=== PATIENT | female | born 1955 | race Caucasian/White ===

== ENCOUNTER 2019-03-23 10:34 | Emergency (ER) | payer OTHER, SELFPAY ==
[2019-03-23 10:37] VITALS: BP 155/76; PULSE 61; RESP 16; TEMP 36.5; O2SAT 96
--- NOTE | 2019-03-23 11:05 | DI.COMBO_ITS ---
SYMPTOM/DIAGNOSIS: EPIGASTRIC ABD PAIN ABDOMEN AND PELVIC CT: CT scan of the abdomen and pelvis was performed following the uneventful administration of intravenous contrast material. There are no priors for comparison. The lung bases are clear. The liver is normal in size. No suspicious hepatic mass is seen. The portal, superior mesenteric and splenic veins are patent. The gallbladder is negative. There is no biliary ductal dilatation. The pancreas, spleen and adrenal glands are unremarkable. The kidneys show normal and symmetric enhancement. No evidence of a solid renal mass or obstruction. The urinary bladder is unremarkable as visualized. The reproductive organs are unremarkable except for a 2 cm. hyperdense lesion seen in the uterus. This may represent uterine fibroid. Non emergent pelvic ultrasound may be considered. The bowel shows no evidence of obstruction or inflammation. There is a moderate amount of retained stool throughout the colon. There is a normal appendix present. There is atherosclerosis of the abdominal aorta but no aneurysmal dilatation. No significant abdominal or pelvic adenopathy, ascites or pneumoperitoneum is present. Multi level degenerative changes are seen throughout the spine. The findings do result in multi level central spinal canal stenosis which is moderate to severe at L 1-2 through L 4-5. Multi level neural foraminal stenosis is also noted. The patient has bilateral total hip replacements which do obscure the pelvic anatomy. There is soft tissue incompletely visualized in the inferior portion of the left breast. This may represent normal breast tissue. A mass cannot be excluded. IMPRESSION: 1. No evidence of an acute abdomen. 2. 2 cm. hyperdense lesion seen in the right uterus. This may represent a fibroid. Non emergent pelvic ultrasound should be considered for further evaluation. 3 2.5 cm. soft tissue mass-like region incompletely visualized in the inferior portion of the left breast. This may represent normal breast tissue. Mass cannot be excluded. Please correlate with the patient's mammograms and physical exam. Follow up mammogram may be considered for further evaluation. 4. Multi level central spinal canal and neural foraminal stenosis in the lumbar spine. PA AND LATERAL CHEST: No priors. Heart size and pulmonary vasculature are within normal limits. The lungs are clear. No effusions or pneumothoraces are identified. Degenerative changes are seen in the spine. The lungs appear somewhat hyperinflated. This may be due to deep inspiration, reactive airway disease or underlying COPD. IMPRESSION: 1. No acute pulmonary process.
--- NOTE | 2019-03-23 11:08 | ED.GENADUL_ITS ---
Discharge Plan Disposition Patient Disposition: HOME Condition: Improving Discharge Details Chief Complaint: Abd Prob Clinical Impression: Epigastric abdominal pain, Nausea Primary Care Provider: Sejal Joseph ED Provider: Jacque Carter Home Meds and New Rx's Prescriptions: Continued levothyroxine 75 mcg Tablet 75 mcg PO DAILY RF: 0 Discharge Instructions Instructions: Acute Nausea and Vomiting (ED), Abdominal Pain (ED) Additional Instructions: Take your Prilosec that you have at home as directed. Call your primary care doctor Monday to schedule a follow-up appointment for reevaluation and to discuss the uterine fibroid and mass seen in your left lower breast on the CAT scan of your abdomen today. Return immediately to the emergency department with any worsening or new concerning symptoms. Discharge Data Discharge Physician: Jacque Carter Medical Decision Making 64-year-old female with history of GERD, hypothyroidism and hyperlipidemia with history of exploratory laparotomy with diagnosis of ovarian cysts who presents with epigastric abdominal pain and nausea since 8 AM this morning. EKG done on arrival due to patient's age and complaint of epigastric abdominal pain and unremarkable. Blood pressure mildly hypertensive, otherwise vitals within normal limits. Patient is tender to palpation in the epigastrium and left upper quadrant. Differential diagnosis includes GERD, gastritis, PUD, cholecystitis, pancreatitis, small bowel obstruction, ACS. Will place an IV, bolus IV fluids, labs, CT abdomen and pelvis, Zofran, Pepcid and GI cocktail and reassess. 1205 --patient states her pain and nausea is improved. Labs reviewed and unremarkable. Normal white blood cell count, electrolytes, lipase, troponin. 1305 --imaging reviewed and no acute significant findings. Chest x-ray negative. CT abdomen and pelvis notes questionable uterine fibroid as well as a 2.5 cm mass in the inferior portion of the left breast otherwise no acute findings. Repeat EKG done and no acute findings. Patient states she feels much better and is requesting to go home. She was informed of the likely incidental CT findings and then to follow-up with her primary care doctor regarding these. Patient states she has Prilosec at home. She is instructed to take this as directed and call her primary care doctor on Monday to schedule a follow-up appointment for reevaluation and to discuss any further management of the incidental CT findings. She is instructed to return here if worse. Medical Records Medical records reviewed: Yes I reviewed the patient's medical records. Imaging Data Radiologic Study: Radiologist's impression: CT Abdomen and Pelvis With Contrast EXAM DATE/TIME: 03/23/2019 11:08 AM FINDINGS: ABDOMEN: Liver: Normal. No mass. Gallbladder and bile ducts: Normal. No calcified stones. No ductal dilation. Pancreas: Normal. No ductal dilation. Spleen: Normal. No splenomegaly. Adrenals: Normal. No mass. 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 Stomach and bowel: Moderate retained feces in the transverse colon and right colon. Appendix: Normal appendix. PELVIS: Bladder: Unremarkable as visualized. Reproductive: Enhancing 1.8 cm right uterine lesion suggesting possible right intramural uterine fibroid. ABDOMEN and PELVIS: Intraperitoneal space: Normal. No free air. No significant fluid collection. Bones/joints: Bilateral total hip replacement with metallic artifact partially obscuring the pelvic anatomy. There is severe thoracolumbar spondylosis. Moderate to severe multilevel degenerative changes including degenerative disc disease, spondylosis and facet degenerative changes. Multilevel central spinal stenosis. Soft tissues: Possible incompletely visualized 2.5 cm mass in the inferior portion of the left breast. Axial series 4, image 1. Followup according to the staff radiologist's final report. Vasculature: Calcification of the abdominal aorta and/or iliac arteries consistent with atherosclerotic vessel disease. Lymph nodes: Normal. No enlarged lymph nodes. IMPRESSION: 1. Bilateral total hip replacement with metallic artifact partially obscuring the pelvic anatomy. 2. Possible incompletely visualized 2.5 cm mass in the inferior portion of the left breast. Axial series 4, image 1. Followup according to the staff radiologist's final report. 3. Enhancing 1.8 cm right uterine lesion suggesting possible right intramural uterine fibroid. 4. Multilevel central spinal stenosis. Radiologic Study #2: Radiologist's impression: XR Chest, 2 Views EXAM DATE/TIME: 03/23/2019 11:08 AM FINDINGS: Lungs: Moderately hyperaerated lungs consistent with deep inspiratory effort vs significant reactive airway disease vs moderate COPD . Pleural space: Unremarkable. No pleural effusion. No pneumothorax. Heart/Mediastinum: Unremarkable. No cardiomegaly. Bones/joints: Mild dextroscoliosis. Mild thoracic spondylosis. IMPRESSION: Moderately hyperaerated lungs consistent with deep inspiratory effort vs significant reactive airway disease vs moderate COPD . Lab Data Lab results reviewed: Yes I reviewed the patient's lab results. Laboratory Tests Range/Units 04/27/19 04/27/19 04/27/19 11:19 11:19 11:19 WBC (4.4-10.8) k/cumm 4.88 RBC (4.00-5.20) m/cumm 4.64 Hgb (12.0-15.5) g/dL 14.5 Hct (36.0-46.0) % 42.1 MCV (80-95) fL 90.7 MCH (27.0-33.0) pg 31.3 MCHC (32.0-36.0) g/dL 34.4 RDW (11.7-14.6) % 12.5 Plt Count (130-400) x1000/uL 209 MPV (8.0-11.0) fL 10.6 Immature Gran % 0.0 Neutrophils % 72.8 Lymphocytes % 18.0 Monocytes % 7.4 Eosinophils % 0.8 Basophils % 1.0 Absolute Neutrophils (1.2-6.7) k/cumm 3.55 Absolute Lymphocytes (1.2-3.4) k/cumm 0.88 L Absolute Monocytes (0.11-0.7) k/cumm 0.36 Absolute Eosinophils (0.0-0.7) k/cumm 0.04 Absolute Basophils (0.0-0.2) k/cumm 0.05 Sodium (136-145) mmol/L 141 Potassium (3.5-5.1) mmol/L 3.7 Chloride (98-107) mmol/L 104 Carbon Dioxide (21.0-32.0) mmol/L 27.9 Anion Gap (3-11) mmol/L 9.1 BUN (7-18) mg/dL 17 Creatinine (0.55-1.02) mg/dL 0.76 Estimated GFR/1.73 m2 (mL/min/1.73m2) >= 60.00 Glucose (70-100) mg/dL 95 Calcium (8.5-10.1) mg/dL 8.5 Magnesium (1.8-2.4) mg/dL 2.0 Total Bilirubin (0.2-1.0) mg/dL 0.5 AST (15-37) U/L 21 ALT (12-78) U/L 26 Alkaline Phosphatase (46-116) U/L 95 Troponin I (0.00-0.06) ng/mL < 0.02 Total Protein (6.4-8.2) g/dL 7.0 Albumin (3.4-5.0) g/dL 3.8 Lipase (73-393) U/L 135 Urine Color (Yellow) Urine Clarity Urine pH (5-8) Ur Specific [place] (1.005-1.025) Urine Protein (Negative) mg/dL Urine Ketones (Negative) mg/dL Urine Blood (Negative) Urine Nitrite (Negative) Urine Bilirubin (Negative) Urine Urobilinogen (Up TO 0.2) EU/dL Ur Leukocyte Esterase (Negative) Urine Glucose (Negative) mg/dL Range/Units 03/23/19 12:00 WBC (4.4-10.8) k/cumm RBC (4.00-5.20) m/cumm Hgb (12.0-15.5) g/dL Hct (36.0-46.0) % MCV (80-95) fL MCH (27.0-33.0) pg MCHC (32.0-36.0) g/dL RDW (11.7-14.6) % Plt Count (130-400) x1000/uL MPV (8.0-11.0) fL Immature Gran % Neutrophils % Lymphocytes % Monocytes % Eosinophils % Basophils % Absolute Neutrophils (1.2-6.7) k/cumm Absolute Lymphocytes (1.2-3.4) k/cumm Absolute Monocytes (0.11-0.7) k/cumm Absolute Eosinophils (0.0-0.7) k/cumm Absolute Basophils (0.0-0.2) k/cumm Sodium (136-145) mmol/L Potassium (3.5-5.1) mmol/L Chloride (98-107) mmol/L Carbon Dioxide (21.0-32.0) mmol/L Anion Gap (3-11) mmol/L BUN (7-18) mg/dL Creatinine (0.55-1.02) mg/dL Estimated GFR/1.73 m2 (mL/min/1.73m2) Glucose (70-100) mg/dL Calcium (8.5-10.1) mg/dL Magnesium (1.8-2.4) mg/dL Total Bilirubin (0.2-1.0) mg/dL AST (15-37) U/L ALT (12-78) U/L Alkaline Phosphatase (46-116) U/L Troponin I (0.00-0.06) ng/mL Total Protein (6.4-8.2) g/dL Albumin (3.4-5.0) g/dL Lipase (73-393) U/L Urine Color (Yellow) Yellow Urine Clarity Clear Urine pH (5-8) 7.5 Ur Specific [place] (1.005-1.025) 1.020 Urine Protein (Negative) mg/dL Negative Urine Ketones (Negative) mg/dL Negative Urine Blood (Negative) Negative Urine Nitrite (Negative) Negative Urine Bilirubin (Negative) Negative Urine Urobilinogen (Up TO 0.2) EU/dL 0.2 Ur Leukocyte Esterase (Negative) Negative Urine Glucose (Negative) mg/dL Negative ECG Data Attestation: I personally reviewed and interpreted this ECG (s) as follows: Interpretation: 1044 -- Rate of 57, sinus, no acute ST elevation or depression. QTc 405. QRS 92. 1323 --rate of 53, sinus, no acute ST elevation or depression. QTc 396. QRS 92. HPI General Mode of arrival: ambulatory . Date/Time Provider Initiated Documentation: 03/23/19 10:52 . Limitations to Documentation: no limitations . Information obtained by: patient . HPI Narrative: Patient is a 64-year-old female with a history of GERD, hypothyroidism and hyperlipidemia with a history of exploratory laparotomy due to ovarian cysts who presents with epigastric abdominal pain since 8 AM this morning. Patient describes the pain is a constant dull and pressure-like pain in the epigastric and left upper quadrant with intermittent episodes of intense pain that lasts a few minutes and then subside. States her pain is currently 5/10 and 8/10 at its worst. She denies any radiation of pain, aggravating or alleviating factors. She has not taken anything for pain. She admits to nausea but denies vomiting or diarrhea. She states she drank 2 small glasses of wine last night. She states she drinks alcohol approximately once every few weeks. Related Data Home Medications Medication Instructions Recorded Confirmed levothyroxine 75 mcg PO DAILY 03/23/19 03/23/19 Allergies Allergy/AdvReac Type Severity Reaction Status Date / Time escitalopram [From Lexapro] AdvReac Unverified 03/23/19 11:31 General Stated Complaint: Abd Prob AMOR: 3 Review of Systems Review of Systems All systems reviewed & are unremarkable except as noted in HPI and below Constitutional Reports as per HPI, Denies chills and Denies fever(s) Eyes Denies blurry vision ENT Denies dizziness, Denies sore throat and Denies throat swelling Cardiovascular Denies chest pain and Denies dyspnea Respiratory Denies cough and Denies dyspnea Gastrointestinal Reports abdominal pain, Denies diarrhea, Reports nausea and Denies vomiting Genitourinary Denies hematuria and Denies dysuria Musculoskeletal Denies back pain and Denies numbness Integumentary/Breasts Denies lesions and Denies rash Neurologic Denies dizziness, Denies focal weakness and Denies numbness Allergic/Immunologic Denies throat swelling PFSH Medical History Hx of hyperlipidemia (Acute) GERD (gastroesophageal reflux disease) (Chronic) Hypothyroidism (Chronic) Surgical History H/O exploratory laparotomy (Acute) Hx of bilateral hip replacements (Acute) Social History Smoking/Tobacco Use Status: Never Alcohol Intake: current Alcohol Intake frequency: holidays/special occasions only Alcohol type: wine Drug use: Never Substance use type: does not use Do you feel safe at home: Yes Do you feel safe in your relationship?: Yes Exam Const General: cooperative, healthy appearing and no acute distress [facility] Head: normal to inspection Face and sinus: normal facial exam Eyes General: appearance normal, both eyes and all related structures EOM: EOM intact bilaterally Neck Neck: normal visual inspection and No submandibular swelling Lymphatic: no lymphadenopathy noted Chest Chest: normal inspection of the chest and no tenderness Resp Effort & Inspection: normal respiratory effort and able to speak in complete sentences Auscultation: clear to auscultation bilaterally Cardio Rate: regular rate Rhythm: regular rhythm GI Inspection: normal to inspection Palpation: soft, not firm, not rigid and tender in the epigastrum and in the LUQ Auscultation: normal bowel sounds Skin General skin exam: no rashes or lesions noted Neuro General: alert, awake and oriented x3 Cognition: normal cognition Speech: speech normal Motor: muscle tone normal throughout Sensory Exam: no sensory deficits noted Extrem General: normal to inspection, full ROM and no edema Psych Appearance: grossly normal Mental Status: mental status grossly normal Speech and Movement: speech and movement normal Affect: normal affect Course Vital Signs Temperature 97.7 F 03/23/19 10:37 Pulse 61 03/23/19 10:37 Respiratory Rate 16 03/23/19 10:37 Blood Pressure 155/76 H 03/23/19 10:37 Pulse Oximetry 96 03/23/19 10:37 Temperature 97.7 F 03/23/19 10:37 Temperature Source Temporal Artery Scan 03/23/19 10:37 Pulse 61 03/23/19 10:37 Respiratory Rate 16 03/23/19 10:37 Blood Pressure 155/76 H 03/23/19 10:37 Blood Pressure Position Sitting 03/23/19 10:37 Pulse Oximetry 96 03/23/19 10:37 Oxygen Delivery Method Room Air 03/23/19 10:37 Oxygen Flow Rate 0 03/23/19 10:37 Pain Level 4 03/23/19 10:37
[2019-03-23] MEDS: Normal Saline 1,000 ML 1000 ML IV (11:27)
[2019-03-23] MEDS: FAMOTIDINE 20 MG/50 ML BAG 200 MG IVPB (11:28)
[2019-03-23] MEDS: Ondansetron 4 MG/2 ML VIAL IVP (11:28)
[2019-03-23 11:34] LABS: Absolute Basophil Count 0.05 k/cumm (0.0-0.2); Absolute Eosinophil Count 0.04 k/cumm (0.0-0.7); Absolute Lymphocyte Count 0.88 k/cumm (1.2-3.4); Absolute Monocyte Count 0.36 k/cumm (0.11-0.7); Absolute Neutrophil Count 3.55 k/cumm (1.2-6.7); Eosinophils % 0.8; HCT 42.1 % (36.0-46.0); HGB 14.5 g/dL (12.0-15.5); Mean Corp. HGB Concentration 34.4 g/dL (32.0-36.0); Mean Corpuscular Hemoglobin 31.3 pg (27.0-33.0); Mean Corpuscular Volume 90.7 fL (80-95); Mean Platelet Volume 10.6 fL (8.0-11.0); Monocytes % 7.4; Neutrophils % 72.8; Platelet Count 209 x1000/uL (130-400); RBC 4.64 m/cumm (4.00-5.20); RBC Distribution Width 12.5 % (11.7-14.6); White Blood Cell Count 4.88 k/cumm (4.4-10.8)
[2019-03-23 11:45] LABS: Lipase 135 U/L (73-393)
[2019-03-23 11:50] LABS: Troponin I < 0.02 ng/mL (0.00-0.06)
[2019-03-23 11:57] LABS: ALT 26 U/L (12-78); AST 21 U/L (15-37); Albumin 3.8 g/dL (3.4-5.0); Alkaline Phosphatase 95 U/L (46-116); Anion Gap 9.1 mmol/L (3-11); BUN 17 mg/dL (7-18); Bilirubin, Total 0.5 mg/dL (0.2-1.0); CO2 27.9 mmol/L (21.0-32.0); CREATININE 0.76 mg/dL (0.55-1.02); Calcium 8.5 mg/dL (8.5-10.1); Chloride 104 mmol/L (98-107); Glucose 95 mg/dL (70-100); Potassium 3.7 mmol/L (3.5-5.1); Sodium 141 mmol/L (136-145)
[2019-03-23 12:10] LABS: Bilirubin Negative (Negative); Blood Negative (Negative); Clarity Clear; Glucose Negative (Negative); Ketones Negative (Negative); Leukocyte Esterase Negative (Negative); Nitrite Negative (Negative); Urobilinogen 0.2 EU/dL (Up TO 0.2); pH 7.5 (5-8)
[2019-03-23] MEDS: Omnipaque 350 MG/ML 100 ML BTL IJ (12:30)
--- NOTE | 2019-03-23 13:05 | DI.VRAD_ITS ---
EXAM: CT Abdomen and Pelvis With Contrast EXAM DATE/TIME: 03/23/2019 11:08 AM CLINICAL HISTORY: 64 years old, female; Other: Epigastric pain, luq pain TECHNIQUE: Imaging protocol: Axial computed tomography images of the abdomen and pelvis with intravenous contrast. Coronal and sagittal reformatted images were created and reviewed. COMPARISON: No relevant prior studies available. FINDINGS: ABDOMEN: Liver: Normal. No mass. Gallbladder and bile ducts: Normal. No calcified stones. No ductal dilation. Pancreas: Normal. No ductal dilation. Spleen: Normal. No splenomegaly. Adrenals: Normal. No mass. 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 Stomach and bowel: Moderate retained feces in the transverse colon and right colon. Appendix: Normal appendix. PELVIS: Bladder: Unremarkable as visualized. Reproductive: Enhancing 1.8 cm right uterine lesion suggesting possible right intramural uterine fibroid. ABDOMEN and PELVIS: Intraperitoneal space: Normal. No free air. No significant fluid collection. Bones/joints: Bilateral total hip replacement with metallic artifact partially obscuring the pelvic anatomy. There is severe thoracolumbar spondylosis. Moderate to severe multilevel degenerative changes including degenerative disc disease, spondylosis and facet degenerative changes. Multilevel central spinal stenosis. Soft tissues: Possible incompletely visualized 2.5 cm mass in the inferior portion of the left breast. Axial series 4, image 1. Followup according to the staff radiologist's final report. Vasculature: Calcification of the abdominal aorta and/or iliac arteries consistent with atherosclerotic vessel disease. Lymph nodes: Normal. No enlarged lymph nodes. IMPRESSION: 1. Bilateral total hip replacement with metallic artifact partially obscuring the pelvic anatomy. 2. Possible incompletely visualized 2.5 cm mass in the inferior portion of the left breast. Axial series 4, image 1. Followup according to the staff radiologist's final report. 3. Enhancing 1.8 cm right uterine lesion suggesting possible right intramural uterine fibroid. 4. Multilevel central spinal stenosis. Dictated and Authenticated by: Gareth Madden MD. Ordering:MOHIT Santillan MD
--- NOTE | 2019-03-23 13:07 | DI.VRAD_ITS ---
EXAM: XR Chest, 2 Views EXAM DATE/TIME: 03/23/2019 11:08 AM CLINICAL HISTORY: 64 years old, female; Pain; Other: Epigastric TECHNIQUE: Imaging protocol: XR of the chest, 2 views. COMPARISON: No relevant prior studies available. FINDINGS: Lungs: Moderately hyperaerated lungs consistent with deep inspiratory effort vs significant reactive airway disease vs moderate COPD . Pleural space: Unremarkable. No pleural effusion. No pneumothorax. Heart/Mediastinum: Unremarkable. No cardiomegaly. Bones/joints: Mild dextroscoliosis. Mild thoracic spondylosis. IMPRESSION: Moderately hyperaerated lungs consistent with deep inspiratory effort vs significant reactive airway disease vs moderate COPD . Dictated and Authenticated by: Gareth Madden MD. Ordering:MOHIT Santillan MD
[2019-03-23 13:35] VITALS: BP 116/44; PULSE 54; RESP 16; TEMP 37.2; O2SAT 97
== END 2019-03-23 13:45 | disposition home or self-care (01) ==
PROVIDERS: Emergency Provider Physician Assistant; PCP Family Medicine
DX: R10.13 Epigastric pain (principal); R11.0 Nausea; N63.20 Unspecified lump in the left breast, unspecified quadrant; D25.9 Leiomyoma of uterus, unspecified
CPT/HCPCS: 80053; 83690; 93005; 96361; 96374; 99285; 71046; 74177; 81003; 83735; 84484; 85025; 93010; J2405; J3490

== ENCOUNTER 2020-07-28 14:10 | Outpatient (REF) | payer SELFPAY ==
[2020-07-30 15:58] LABS: Patient Race White; SARS-CoV-2 RNA Undetected (Undetected); SARS-CoV-2 Specimen Source Nasal
== END 2020-07-28 14:30 ==
LOC: NCHCN 14:10
PROVIDERS: PCP Family Medicine; Visit Provider Family Medicine
DX: Z20.828 Contact with and (suspected) exposure to other viral communicable diseases (principal)
CPT/HCPCS: U0003

== ENCOUNTER 2020-10-02 14:18 | Outpatient (CLI) | payer MEDICARE, SELFPAY ==
--- NOTE | 2020-10-02 | DI.RAD_ITS ---
EXAM: XR KNEE RT 4V AP,LAT,RICHARD,PAT CLINICAL HISTORY: RT KNEE PAIN ACUTE, M25.561 TECHNIQUE: COMPARISON: No exams were available for comparison FINDINGS: Four views were obtained. There is a probable knee joint effusion. There are degenerative changes o f all 3 joints of the knee with narrowing of the cartilaginous joint spaces and moderate osteophyte f ormations at the joint margins. There is no evidence of acute fracture or dislocation. IMPRESSION: RADIATION DOSE DELIVERED: Total DLP
== END 2020-10-02 14:38 ==
PROVIDERS: PCP Family Medicine; Visit Provider Family Medicine
DX: M25.561 Pain in right knee (principal)
CPT/HCPCS: 73564

== ENCOUNTER 2020-10-30 22:18 | Outpatient (REF) | payer MEDICARE, SELFPAY ==
[2020-11-03 10:09] LABS: COVID-19 RT-PCR Result NEGATIVE (Negative)
== END 2020-10-30 22:38 ==
LOC: NCHCN 22:18
PROVIDERS: PCP Family Medicine; Visit Provider Nurse Practitioner Family
DX: Z11.59 Encounter for screening for other viral diseases (principal)
CPT/HCPCS: U0003

== ENCOUNTER 2020-12-23 05:45 | Emergency (ER) | payer MEDICARE, SELFPAY ==
--- NOTE | 2020-12-23 05:45 | DI.RAD_ITS ---
EXAM: XR PORTABLE CHEST AP CLINICAL HISTORY: fever TECHNIQUE: 2D digital imaging was performed. COMPARISON: CR XR CHEST 2V PA LATERAL from 03/23/2019 FINDINGS: LUNGS: Clear. No pleural abnormality seen. HEART: Normal. MEDIASTINUM: Normal. BONES: Prominent osteophytes in the thoracic spine. IMPRESSION: No acute pulmonary findings. DATA REPOSITORY: RADIATION DOSE DELIVERED:
[2020-12-23 05:51] VITALS: BP 173/91; PULSE 84; RESP 18; TEMP 37.2; O2SAT 97
--- NOTE | 2020-12-23 05:57 | W.ED.GENAD ---
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 This is likely a vaccine reaction and should only last a few days at most continue tylenol as needed for body aches and you can also try using ibuprofen if you have no allergies if not better within 5 days follow up with your primary care provider if you feel more ill, have worsening weakness, difficulty breathing or severe pain return to the emergency department Medical Decision Making 65 yo female with hx of hypothryoidism who is on her 2nd to last day of bactrim for a uti dx'd at urgent care, who received her 2nd maderna covid vaccine yesterday comes in with body aches, fever to 101 and body aches this morning. She has a mild headache, no cough, rashes, vomit, back pain. She denies smoking, rarely drinks and no drug use. She still has some suprapubic discomfort, no cva tenderness, no guarding or tenderness on abdominal exam. ARrives hd stable speaking in full sentences, no menignismus, clear lungs and no murmurs and no rashes or stigmata of endocarditis. Suspect her symptoms are due to the vaccine she received yesterday as cdc website lists common side effects of fevers, chills, tiredness and headaches but will evaluate for possible continued uti with ua, obtain cbc and lactate. 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 She remains stable, is going to try giving a urine for urinalysis. UA only shows few bacteria otherwise unremarkable so do not feel additional abx indicated. She remains stable and given reassuring exam and workup feel this is most likely vaccine side effects. She is comfortable with d/c and f/u with pcp if symptoms continue and return precautions given Differential Diagnosis Differential Diagnosis: pyelo, uti, vaccine side effects Imaging Data Radiologic Study: Attestation: I personally reviewed and interpreted this imaging study as follows: Imaging: X-Ray Radiologist's impression: PROCEDURE INFORMATION: Exam: XR Chest, 1 View Exam date and time: 12/23/2020 5:57 AM Age: 65 years old Clinical indication: Patient HX: Fever, chills TECHNIQUE: Imaging protocol: XR of the chest Views: 1 view. COMPARISON: CR XR CHEST 2V PA LATERAL 03/23/2019 12:34 PM FINDINGS: Lungs: Unremarkable. No consolidation. Pleural spaces: Unremarkable. No pleural effusion. No pneumothorax. Heart/Mediastinum: Unremarkable. No cardiomegaly. Bones/joints: Unremarkable. IMPRESSION: No acute findings. Lab Data Lab results reviewed: Yes I reviewed the patient's lab results. HPI General Mode of arrival: ambulatory. Date/Time Provider Initiated Documentation: 12/23/20 05:46. Limitations to Documentation: no limitations. Information obtained by: patient. History of Present Illness 65 year old F presents to the emergency department with the chief complaint of body aches and fever, described as moderate, Patient started experiencing this day(s) (1) and it has been constant. No relieving factors improve symptom(s), No exacerbating factors reported . Patient did receive the following treatments prior to arrival, other (tylenol) Related Data Home Medications Medication Instructions Recorded Confirmed levothyroxine 75 mcg PO DAILY 03/23/19 03/23/19 Allergies Allergy/AdvReac Type Severity Reaction Status Date / Time escitalopram [From Lexapro] AdvReac Unverified 03/23/19 11:31 General Stated Complaint: Fever AMOR: 4 Review of Systems All systems reviewed & are unremarkable except as noted in HPI and below Cardiovascular Cardiovascular: Denies chest pain and Denies dyspnea Respiratory Respiratory: Denies cough and Denies dyspnea Gastrointestinal Gastrointestinal: Denies nausea and Denies vomiting Integumentary/Breasts Skin/Breast: Denies rash COUNT INCLUDES THE [facility] Medical History (Updated 12/23/20 @ 07:16 by Gareth Parmar MD) GERD (gastroesophageal reflux disease) Hx of hyperlipidemia Hypothyroidism Surgical History H/O exploratory laparotomy due to ovarian cysts, otherwise negative Hx of bilateral hip replacements Social History Smoking/Tobacco Use Status: Never Smoking risk assessment performed?: Yes Alcohol Intake: former Drug use: Never Substance use type: does not use Do you feel safe at home: Yes Do you feel safe in your relationship?: Yes Exam Const General: no acute distress Orientation: alert HENMT Head: normal to inspection Ears: external ears normal General nose exam: external nose normal Mouth: moist mucous membranes Eyes General: appearance normal, both eyes and all related structures Neck Neck: normal visual inspection Resp Effort & Inspection: normal respiratory effort and able to speak in complete sentences Cardio Rate: regular rate General: No CVA tenderness Skin General skin exam: no rashes or lesions noted Neuro General: patient alert and patient oriented x3 Extrem General: normal to inspection Psych Mental Status: mental status grossly normal Course Vital Signs Vital signs: Vital Signs Temperature 37.2 C 12/23/20 05:51 Pulse 84 12/23/20 05:51 Respiratory Rate 18 12/23/20 05:51 Blood Pressure 173/91 H 12/23/20 05:51 Pulse Oximetry 97 12/23/20 05:51 Temperature 37.2 C 12/23/20 05:51 Temperature Source Temporal Artery Scan 12/23/20 05:51 Pulse 84 12/23/20 05:51 Respiratory Rate 18 12/23/20 05:51 Respiratory Effort Non-Labored 12/23/20 05:55 Blood Pressure 173/91 H 12/23/20 05:51 Blood Pressure Position Sitting 12/23/20 05:51 Pulse Oximetry 97 12/23/20 05:51 Oxygen Delivery Method Room Air 12/23/20 05:51 Oxygen Flow Rate 0 12/23/20 05:51
[2020-12-23] MEDS: Normal Saline 1,000 ML 1000 ML IV (06:00)
[2020-12-23 06:22] LABS: Abs Immature Grans 0.01 10^3/uL (0.0-0.06); Absolute Basophil Count 0.05 10^3/uL (0.0-0.2); Absolute Eosinophil Count 0.04 10^3/uL (0.0-0.7); Absolute Lymphocyte Count 0.46 10^3/uL (1.2-3.4); Absolute Monocyte Count 0.35 10^3/uL (0.1-0.8); Absolute Neutrophil Count 6.15 10^3/uL (1.2-6.7); Basophils % 0.7; Eosinophils % 0.6; HCT 39.9 % (36.0-46.0); HGB 13.6 g/dL (11.2-15.7); Immature Grans % 0.1; Lymphocytes % 6.5; MCH 30.9 pg (27.0-33.0); MCHC 34.1 % (32.0-36.0); MCV 90.7 fL (80-95); MPV 10.3 fL (8.0-11.0); Neutrophils % 87.1; Nucleated RBC 0 %; Platelet Count 235 10^3/uL (130-400); RDW 11.9 % (11.7-14.6); RDW-SD 39.8 fL; WBC 7.06 10^3/uL (4.4-10.8)
[2020-12-23 06:33] LABS: Magnesium 1.8 mg/dL (1.8-2.4)
[2020-12-23 06:38] LABS: ALT 20 U/L (14-59); AST 16 U/L (15-37); Albumin 3.8 g/dL (3.4-5.0); Alkaline Phosphatase 81 U/L (46-116); Anion Gap 13.1 mmol/L (3-11); BUN 11 mg/dL (7-18); Bilirubin, Total 0.5 mg/dL (0.2-1.0); CO2 23.9 mmol/L (21.0-32.0); CREATININE 1.02 mg/dL (0.55-1.02); Calcium 8.7 mg/dL (8.5-10.1); Chloride 100 mmol/L (98-107); Estimated GFR 54.39 (mL/min/1.73m2); Glucose 123 mg/dL (74-106); Potassium 3.4 mmol/L (3.5-5.1); Sodium 137 mmol/L (136-145); Total Protein 7.4 g/dL (6.4-8.2)
--- NOTE | 2020-12-23 06:40 | DI.VRAD_ITS ---
PROCEDURE INFORMATION: Exam: XR Chest, 1 View Exam date and time: 12/23/2020 5:57 AM Age: 65 years old Clinical indication: Patient HX: Fever, chills TECHNIQUE: Imaging protocol: XR of the chest Views: 1 view. COMPARISON: CR XR CHEST 2V PA LATERAL 03/23/2019 12:34 PM FINDINGS: Lungs: Unremarkable. No consolidation. Pleural spaces: Unremarkable. No pleural effusion. No pneumothorax. Heart/Mediastinum: Unremarkable. No cardiomegaly. Bones/joints: Unremarkable. IMPRESSION: No acute findings. Dictated and Authenticated by: Yariel Sanchez MD. Ordering:CADE Servin MD
[2020-12-23 07:02] LABS: Bilirubin Negative (Negative); Blood Trace-lysed (Negative); Clarity Clear (Clear); Glucose Negative (Negative); Ketones 15 mg/dL (Negative); Leukocyte Esterase Negative (Negative); Nitrite Negative (Negative); Specific Gravity 1.025 (1.005-1.025); Urobilinogen 0.2 EU/dL (Up TO 0.2)
[2020-12-23 07:15] LABS: Bacteria Few HPF (Negative); C & S Indicated? C&S Done As Ordered; Casts Negative LPF (Negative); Crystals Negative HPF (Negative); Epithelial Cells Rare HPF (Negative); Mucus Moderate (Negative); Other Cells Negative (Negative); RBC 0-2 HPF (0-2); WBC 0-2 HPF (0-5)
== END 2020-12-23 07:49 | disposition home or self-care (01) ==
PROVIDERS: Emergency Provider Emergency Medicine; PCP Family Medicine
DX: M79.10 Myalgia, unspecified site (principal); R50.9 Fever, unspecified; T50.Z95A Adverse effect of other vaccines and biological substances, initial encounter
CPT/HCPCS: 36415; 80053; 87449; 96360; 99284; 71045; 81003; 81015; 83605; 83735; 85025; 87086

== ENCOUNTER → 2021-05-03 14:52 | Outpatient (BNVA) | payer MEDICARE, SELFPAY | PROVIDERS: PCP Family Medicine; Referring Provider Family Medicine; Visit Provider Student in an Organized Health Care Education/Training Program | DX: M25.561 Pain in right knee (principal); M17.11 Unilateral primary osteoarthritis, right knee | CPT/HCPCS: 20610; 99213; J7325 ==

== ENCOUNTER 2023-12-27 12:30 | Outpatient (REF) | payer MEDICARE, SELFPAY | END 2023-12-27 12:31 | disposition home or self-care (01) | LOC: LBN 12:30 | PROVIDERS: PCP Family Medicine; Visit Provider Physician Assistant Medical | DX: N89.8 Other specified noninflammatory disorders of vagina (principal) | CPT/HCPCS: 87480; 87510; 87660 ==

== ENCOUNTER 2024-10-01 02:21 | Outpatient (CLI) | payer MEDICARE, SELFPAY ==
[2024-10-01 12:59] LABS: Vitamin B12 704 pg/mL (193-986); Vitamin D 25 Total 43.4 ng/mL (30-100)
[2024-10-01 13:01] LABS: Folate > 20.0 ng/mL (8.6-20.0)
== END 2024-10-01 02:22 | disposition home or self-care (01) ==
LOC: LBO 02:21
PROVIDERS: PCP Family Medicine; Visit Provider Neuromusculoskeletal Medicine & OMM
DX: E55.9 Vitamin D deficiency, unspecified (principal); G62.9 Polyneuropathy, unspecified
CPT/HCPCS: 36415; 82306; 82607; 82746

== ENCOUNTER 2025-01-08 03:32 | Emergency (ER) | payer MEDICARE, SELFPAY ==
[2025-01-08] VITALS (30 sets, daily range): BP systolic 108–202; BP diastolic 52–80; PULSE 35–71; RESP 11–20; TEMP 36.4; O2SAT 95–99
--- NOTE | 2025-01-08 03:30 | RT.EKG_ITS ---
APPROVED REPORT Exam: Resting ECG Reason for Exam: chst pain Patient Location: E HR:67 bpm ECG Measurements Heart Rate 67 AXIS AL 135 P 61 QRSd 97 QRS -17 QT 407 T 67 QTc 411 Conclusion Sinus rhythm...normal P axis, V-rate 60- 99 Ventricular premature complex...V complex w/ short R-R interval Physician: no stemi
--- NOTE | 2025-01-08 03:45 | DI.RAD_ITS ---
Exam(s) XR PORTABLE CHEST AP EXAM: XR PORTABLE CHEST AP CLINICAL HISTORY: chest pain. TECHNIQUE: 2D digital imaging was performed. COMPARISON: CR,XR XR PORTABLE CHEST AP from 12/23/2020 FINDINGS: Single AP portable view. Heart size is upper normal. The mediastinum is not widened. Lungs are clear. No infiltrates nor obvious pleural effusions. IMPRESSION: No acute pulmonary findings on this single AP portable view of the chest. DATA REPOSITORY: RADIATION DOSE DELIVERED:
[2025-01-08 03:58] LABS: Abs Immature Grans 0.01 10^3/uL (0.0-0.06); Absolute Basophil Count 0.07 10^3/uL (0.0-0.2); Absolute Eosinophil Count 0.13 10^3/uL (0.0-0.7); Absolute Lymphocyte Count 2.13 10^3/uL (1.2-3.4); Absolute Monocyte Count 0.59 10^3/uL (0.1-0.8); Basophils % 1.3 %; Eosinophils % 2.4 %; HCT 43.9 % (36.0-46.0); HGB 14.7 g/dL (11.2-15.7); Immature Grans % 0.2 %; Lymphocytes % 39.2 %; MCH 31.5 pg (27.0-33.0); MCHC 33.5 % (32.0-36.0); MCV 94 fL (80-95); MPV 10.4 fL (8.0-11.0); Monocytes % 10.9 %; Platelet Count 233 10^3/uL (130-400); RBC 4.66 10^6/uL (3.93-5.22); RDW 12.1 % (11.7-14.6); RDW-SD 42.2 fL; WBC 5.43 10^3/uL (4.4-10.8)
[2025-01-08] MEDS: Aspirin 81 MG CHEW 324 MG CH (04:14)
[2025-01-08 04:22] LABS: ALT 35 U/L (14-59); AST 32 U/L (15-37); Albumin 4.2 g/dL (3.4-5.0); Alkaline Phosphatase 105 U/L (46-116); Anion Gap 9.2 mmol/L (3-11); BUN 16 mg/dL (7-18); Bilirubin, Total 0.29 mg/dL (0.2-1.0); CO2 29.8 mmol/L (21.0-32.0); CREATININE 0.9 mg/dL (0.55-1.02); Calcium 9.6 mg/dL (8.5-10.1); Chloride 106 mmol/L (98-107); Glucose 100 mg/dL (74-106); Magnesium 2.2 mg/dL (1.8-2.4); Potassium 3.8 mmol/L (3.5-5.1); Sodium 145 mmol/L (136-145); TSH (W/Ref FT4) 3.61 uIU/mL (0.36-3.74); Total Protein 7.9 g/dL (6.4-8.2); Troponin I 5 ng/L (<or=51)
--- NOTE | 2025-01-08 04:26 | W.ED.GENAD ---
Discharge Plan Disposition Patient Disposition: Home Condition: Good Discharge Details Clinical Impression: Chest pain, Frequent PVCs Primary Care Provider: Radha Westbrook ED Provider: Luis Carlos Georges Home Meds and New Rx's Prescriptions: No Action pindolol 10 mg tablet 10 mg PO BID magnesium oxide 400 mg (241.3 mg magnesium) tablet 400 mg PO DAILY cholecalciferol (vitamin D3) 50 mcg (2,000 unit) capsule 100 mcg PO DAILY vitamin B complex [B Complex-Vitamin B12] Tablet 1 tab PO DAILY atorvastatin 10 mg tablet 10 mg PO DAILY Patient Comments: TAKE 1 TABLET BY MOUTH DAILY gabapentin 250 mg/5 mL solution 50 mg PO DAILY Patient Comments: TAKE 1 ML BY MOUTH EVERY NIGHT AT BEDTIME levothyroxine 75 mcg Tablet 75 mcg PO DAILY Discharge Instructions Instructions: Chest Pain, Adult ED Additional Instructions: At this time your workup has returned reassuring. Your blood pressure has normalized, you show no signs of heart attack currently. Your electrolytes are normal, there is no evidence of heart strain on your bedside echo, and your thyroid function remains stable. Because of the PVCs that were noted in the symptoms you experienced we do feel it is important to follow-up closely for further cardiology testing. A referral has been placed with recommendations for a stress test. Please follow-up closely with your primary care provider for reassessment and further cardiac monitoring. Please avoid any significant caffeine intake. Get plenty of sleep, and stay well-hydrated. If you notice any worsening of your symptoms, or any new symptoms such as vomiting, diarrhea, fever, chills, shortness of breath, chest pain, numbness, weakness, or fainting , please return immediately to the emergency department for reevaluation. Please follow up with your primary care provider as soon as possible for reassessment and reevaluation. As always, it was a pleasure participating in your medical care today. Referrals: Radha Westbrook [Primary Care Provider] - [facility] General Date/Time Provider Initiated Documentation: 01/08/25 03:38. HPI Narrative: 69-year-old female with a past medical history of SVT, high cholesterol, hypothyroidism, who presents today for evaluation of chest discomfort. Patient states that about 24 hours ago she had a sharp pain that developed in her chest while resting. This went away on its own after few hours. She was well throughout the day, without any atypical symptoms of significant chest discomfort shortness of breath or other abnormality aside from mild fatigue. And then tonight about 3 hours prior to arrival at around midnight to 1 AM she developed notable left-sided chest pressure that radiated slightly up towards her neck. She describes it as similar to the weight of a dog on her chest. She denies any tearing or ripping sensation. No sharp stabbing pain. No pleuritic chest pain. She admits to significant stressors that did occur tonight, including multiple challenges with her siblings which she was helping to manage. No personal history or family history of heart attack. She denies any other complaints at this time. No exertional dyspnea. No numbness or tingling. No smoking. Related Data Home Medications ?Medication ?Instructions ?Recorded ?Confirmed levothyroxine 75 mcg tablet 75 mcg PO DAILY 03/23/19 01/08/25 cholecalciferol (vitamin D3) 50 100 mcg PO DAILY 02/28/23 01/08/25 mcg (2,000 unit) capsule magnesium oxide 400 mg (241.3 mg 400 mg PO DAILY 02/28/23 01/08/25 magnesium) tablet pindolol 10 mg tablet 10 mg PO BID 02/28/23 01/08/25 vitamin B complex (B 1 tab PO DAILY 02/28/23 01/08/25 Complex-Vitamin B12 tablet) atorvastatin 10 mg tablet 10 mg PO DAILY 01/08/25 01/08/25 gabapentin 250 mg/5 mL oral 50 mg PO DAILY 01/08/25 01/08/25 solution Allergies Allergy/AdvReac Type Severity Reaction Status Date / Time escitalopram (From Lexapro) AdvReac rash Verified 01/08/25 04:58 General Stated Complaint: Chest Pain AMOR: 2 Exam Narrative Exam Narrative: 1.Const: Well-nourished, Well-developed, appearing stated age 2.Eyes: PERRL, no conjunctival injection, and symmetrical lids. 3.ENT: Atraumatic external nose and ears. Moist MM. Neck: Symmetric, trachea midline, No thyromegaly. 4.CVS: +S1/S2, Peripheral pulses 2+ and equal in all extremities. Brisk capillary refill in all extremities. 5.RESP: Unlabored respiratory effort. Clear to auscultation bilaterally. No wheezes rales or rhonchi 6.GI: Soft, Nontender/Nondistended, No hepatosplenomegaly. No guarding or rebound. 7.MSK: Normocephalic/Atraumatic, Extremities w/o deformity or ttp No cyanosis or clubbing, Normal movement of all extremities 8.Skin: Warm, Dry. No rashes or lesions. 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 Sensation grossly intact, no focal neurologic deficits. 10.Psych: (AAO) x3. Appropriate mood and affect Course Vital Signs Vital signs: Vital Signs Temperature 36.4 C L 01/08/25 03:35 Pulse 56 L 01/08/25 03:35 Respiratory Rate 16 01/08/25 03:35 Blood Pressure 188/76 H 01/08/25 03:35 Pulse Oximetry 99 01/08/25 03:35 Temperature 36.4 C L 01/08/25 03:35 Temperature Source Axillary 01/08/25 03:35 Pulse 35 L 01/08/25 03:41 Pulse 71 01/08/25 03:41 Respiratory Rate 15 01/08/25 03:43 Respiratory Effort Normal, Non-Labored 01/08/25 03:43 Respiratory Depth Normal 01/08/25 03:43 Respiratory Pattern Normal 01/08/25 03:43 Blood Pressure 188/76 H 01/08/25 03:40 Blood Pressure Mean 111 01/08/25 03:40 Blood Pressure Position Supine 01/08/25 03:35 Pulse Oximetry 99 01/08/25 03:41 Oxygen Delivery Method Room Air 01/08/25 03:35 Oxygen Flow Rate 0 01/08/25 03:35 Pain Level 0 01/08/25 03:43 Lab/Test Results Lab/Test Results: Laboratory Tests Range/Units 01/08/25 03:45 WBC (4.4-10.8) 10^3/uL 5.43 RBC (3.93-5.22) 10^6/uL 4.66 Hgb (11.2-15.7) g/dL 14.7 Hct (36.0-46.0) % 43.9 MCV (80-95) fL 94 MCH (27.0-33.0) pg 31.5 MCHC (32.0-36.0) % 33.5 RDW (11.7-14.6) % 12.1 Plt Count (130-400) 10^3/uL 233 MPV (8.0-11.0) fL 10.4 Immature Gran % % 0.2 Neutrophils % % 46.0 Lymphocytes % % 39.2 Monocytes % % 10.9 Eosinophils % % 2.4 Basophils % % 1.3 Nucleated RBC % (0.0-0.3) % 0.0 Absolute Neutrophils (1.2-6.7) 10^3/uL 2.50 Absolute Lymphocytes (1.2-3.4) 10^3/uL 2.13 Absolute Monocytes (0.1-0.8) 10^3/uL 0.59 Absolute Eosinophils (0.0-0.7) 10^3/uL 0.13 Absolute Basophils (0.0-0.2) 10^3/uL 0.07 Sodium (136-145) mmol/L 145 Potassium (3.5-5.1) mmol/L 3.8 Chloride (98-107) mmol/L 106 Carbon Dioxide (21.0-32.0) mmol/L 29.8 Anion Gap (3-11) mmol/L 9.2 BUN (7-18) mg/dL 16 Creatinine (0.55-1.02) mg/dL 0.9 Est GFR (CKD-EPI 2020) (mL/min/1.73m2) 69.20 Glucose (74-106) mg/dL 100 Calcium (8.5-10.1) mg/dL 9.6 Magnesium (1.8-2.4) mg/dL 2.2 Total Bilirubin (0.2-1.0) mg/dL 0.29 AST (15-37) U/L 32 ALT (14-59) U/L 35 Alkaline Phosphatase (46-116) U/L 105 Troponin I (<or=51) ng/L 5 Total Protein (6.4-8.2) g/dL 7.9 Albumin (3.4-5.0) g/dL 4.2 TSH (0.36-3.74) uIU/mL 3.61 Medical Decision Making 69-year-old female with a past medical history of SVT, high cholesterol, hypothyroidism, who presents today for evaluation of chest discomfort. Patient states that about 24 hours ago she had a sharp pain that developed in her chest while resting. This went away on its own after few hours. She was well throughout the day, without any atypical symptoms of significant chest discomfort shortness of breath or other abnormality aside from mild fatigue. And then tonight about 3 hours prior to arrival at around midnight to 1 AM she developed notable left-sided chest pressure that radiated slightly up towards her neck. She describes it as similar to the weight of a dog on her chest. She denies any tearing or ripping sensation. No sharp stabbing pain. No pleuritic chest pain. She admits to significant stressors that did occur tonight, including multiple challenges with her siblings which she was helping to manage. No personal history or family history of heart attack. She denies any other complaints at this time. No exertional dyspnea. No numbness or tingling. No smoking. Exam demonstrates well-appearing female, no guarding or rebound, no reproducible chest tenderness. Pulses are equal. Vital signs demonstrate hypertension, and initially she had some PVCs on her EKG but then transition to about a minute or 2 of bigeminy. She eventually came out of this on her own without any intervention. Differential includes Prinzmetal's angina, less likely ACS. EKG does not show evidence of STEMI. Electrolyte abnormality causing PVCs is certainly of concern versus generalized ectopy. We will evaluate for these etiologies, give aspirin, perform bedside limited echo, monitor closely and reassess. 6:19 AM Laboratory workup is returned, no white count bandemia or left shift. Thyroid function normal, troponin x 2 is normal. EKG shows no evidence of STEMI. Some PVCs are noted, but no persistent ectopy. Chest pain has resolved after aspirin. Nitroglycerin was given, but this made no significant change in her chest pain during her stay. Chest x-ray negative for acute process, bedside echo shows no contractility abnormality, no pericardial effusion or signs of tamponade. No significant abnormality. Heart score is in the low risk category 3 points. Symptoms at this time appear inconsistent clinically with pneumonia, dissection, ACS, or other PE. No pleuritic chest pain, tearing or ripping sensation, fever or chills. With no exertional components, I doubt active ACS. Review of previous stress test reveals that she has exercise induced dysrhythmias of SVT. However there is no evidence of SVT here tonight. I do feel that the patient is stable for discharge as current clinical assessment shows no signs of acute life-threatening etiology, however I do recommend close follow-up with PCP for nonemergent stress testing. Recommend cutting down on caffeine intake. Recommend sleep and good hydration. Discussed red flags for which to return. I have extensively reviewed the treatment plan and discharge instructions with the patient. I have addressed all patient concerns at this time. The patient was made aware of what symptoms to monitor for that would warrant a return to the emergency department. Discussed the plan with the patient, they demonstrate verbal understanding and agreement with our assessment and plan at this time. The documentation in this chart was dictated using Hol[employer] dictation software. Please excuse any dictation errors. FINDINGS: Lungs: Mild hyperaeration. No consolidation. Pleural spaces: Unremarkable. No pleural effusion. No pneumothorax. Heart/Mediastinum: Unremarkable. No cardiomegaly. Bones/joints: Age related changes. IMPRESSION: No acute findings. Thank you for allowing us to participate in the care of your patient. Dictated and Authenticated by: Emely Wood MD 01/08/2025 4:29 AM Eastern Time ([place] & [place]) Quality:SDOH Health Related Social Needs: No Data to Display PFSH All Active Problems (Updated 01/08/25 @ 06:14 by Luis Carlos Georges DO) Frequent PVCs (Acute) Chest pain (Acute) Pain, foot (Acute) Bunion (Acute) Degenerative joint disease of right knee (Chronic) Synvisc injection: 05/03/2021 Medical History (Updated 01/08/25 @ 06:14 by Luis Carlos Georges DO) Hx of hyperlipidemia Hypothyroidism GERD (gastroesophageal reflux disease) Surgical History Hx of bilateral hip replacements H/O exploratory laparotomy due to ovarian cysts, otherwise negative Social History Smoking/Tobacco Use Status: Never Smoking risk assessment performed?: Yes Alcohol Intake: former Drug use: Never Substance use type: does not use Do you feel safe at home: Yes Do you feel safe in your relationship?: Yes POCUS Exam (ED) Limited Cardiac Exam DATE OF EXAM: 01/08/25 TIME OF EXAM: 04:39 PROVIDER THAT PERFORMED THE STUDY: Luis Carlos Georges IS THIS A REPEAT EXAM DURING THIS ENCOUNTER: no REASON FOR EXAM: Chest pain VISUALIZED STRUCTURES: Left atrium, Left ventricle, Right ventricle and Interventricular septum VIEW OBTAINED: Parasternal long-axis PERTINENT FINDINGS/IMPRESSION: No apparent abnormalities Exam complete
--- NOTE | 2025-01-08 04:30 | DI.VRAD_ITS ---
PROCEDURE INFORMATION: Exam: XR Chest Exam date and time: 01/08/2025 4:11 AM Age: 69 years old Clinical indication: Other: Chest pain TECHNIQUE: Imaging protocol: Radiologic exam of the chest. Views: 1 view. COMPARISON: CR XR PORTABLE CHEST AP 12/23/2020 6:12 AM FINDINGS: Lungs: Mild hyperaeration. No consolidation. Pleural spaces: Unremarkable. No pleural effusion. No pneumothorax. Heart/Mediastinum: Unremarkable. No cardiomegaly. Bones/joints: Age related changes. IMPRESSION: No acute findings. Dictated and Authenticated by: Emely Wood MD. Orderin Destini Aldridge MD
[2025-01-08 04:49] LABS: NT-proBNP 129 pg/mL (<300)
[2025-01-08] MEDS: nitroGLYcerin 0.4 MG TAB SL (05:00)
[2025-01-08 05:03] LABS: Troponin I 4 ng/L (<or=51)
== END 2025-01-08 06:20 | disposition home or self-care (01) ==
LOC: ER 06:35
PROVIDERS: Emergency Provider Student in an Organized Health Care Education/Training Program; PCP Family Medicine
DX: R07.9 Chest pain, unspecified (principal); I49.3 Ventricular premature depolarization; E03.9 Hypothyroidism, unspecified; R06.89 Other abnormalities of breathing
CPT/HCPCS: 36415; 80053; 93005; 93308; 99285; 71045; 83735; 83880; 84443; 84484; 85025; 85610; 85730; 93010